=== PATIENT | male | born 1995 | race Caucasian/White ===

== ENCOUNTER → 2022-09-19 15:13 | Outpatient (CLI) | payer OTHER, SELFPAY ==
--- NOTE | 2022-09-19 15:22 | XR_ITS ---
FINAL REPORT CLINICAL HISTORY: R ANTERIOR KNEE PAIN FINDINGS: AP, lateral and oblique views of the right knee were obtained. There is no prior exam for comparison. There is no acute osseous abnormality of the right knee. The joint space is preserved. The soft tissues are normal. There is no joint effusion. IMPRESSION: No acute osseous abnormality of the right knee. Reviewed, Interpreted and Dictated by Herlinda Mehta MD Transcribed by Daniela Shepard Authenticated and [facility]
== END ==
PROVIDERS: PCP Nurse Practitioner Family; Visit Provider Nurse Practitioner Family
DX: M25.561 Pain in right knee (principal)
CPT/HCPCS: 73562

== ENCOUNTER → 2023-01-21 12:30 | Outpatient (CLI) | payer OTHER, SELFPAY | PROVIDERS: PCP Nurse Practitioner Family; Visit Provider Nurse Practitioner Family | DX: R00.1 Bradycardia, unspecified (principal) | CPT/HCPCS: 93225; 93226 ==

== ENCOUNTER → 2023-02-10 15:22 | Outpatient (CLI) | payer OTHER, SELFPAY ==
--- NOTE | 2023-02-10 15:26 | US_ITS ---
PROCEDURE INFORMATION: Exam: US Soft Tissue Head and Neck, Thyroid Exam date and time: 02/10/2023 3:48 PM Age: 27 years old Clinical indication: Abnormal findings; Abnormal thyroid lab test; Additional info: Low tsh level TECHNIQUE: Imaging protocol: Real-time ultrasound scan of the neck with image documentation. Exam focused on the thyroid. COMPARISON: No relevant prior studies available. FINDINGS: Right thyroid lobe: 14.2 mL. Markedly heterogeneous echotexture without dominant solid or suspicious nodule. Left thyroid lobe: 17.5 mL. Markedly heterogeneous echotexture without dominant solid or suspicious nodule. Isthmus: 6 mm IMPRESSION: 1. Markedly heterogeneous enlarged thyroid gland without dominant solid or suspicious nodule. 2. Differential diagnosis goiter, Graves disease and thyroiditis. Recommend correlation with pertinent clinical history and follow-up as indicated.
== END ==
LOC: RAD 15:22
PROVIDERS: PCP Nurse Practitioner Family; Visit Provider Nurse Practitioner Family
DX: R79.89 Other specified abnormal findings of blood chemistry (principal)
CPT/HCPCS: 76536

== ENCOUNTER 2024-02-24 16:16 | Outpatient (CLI) | payer OTHER, SELFPAY ==
[2024-02-24 15:52] LABS: T4 (Thyroxine) 10.6 ug/dl (5.53-11.0)
[2024-02-24 15:53] LABS: 25-OH Vitamin D, Total 41.5 ng/mL (30-100)
[2024-02-24 16:06] LABS: Thyroid Stimulating Hormone 0.83 uIU/mL (0.465-4.68)
[2024-02-24 16:25] LABS: Vitamin B12 533 pg/mL (239-931)
[2024-02-24 17:17] LABS: Ferritin 128 ng/ml (17.9-464)
[2024-02-26 13:15] LABS: Thyroid Peroxidase Antibodies 132 IU/mL (0-34); Triiodothyronine (T3) Free 3.1 pg/mL (2.0-4.4)
[2024-02-26 14:20] LABS: Thyroglobulin Level 4.8 IU/mL (0.0-0.9)
[2024-03-02 23:47] LABS: Vitamin B1 128.6 nmol/L (66.5-200.0)
== END 2024-02-24 23:59 | disposition home or self-care (01) ==
LOC: LAB.DROPOF 16:16
PROVIDERS: PCP Nurse Practitioner Family; Visit Provider Nurse Practitioner Family
DX: E05.90 Thyrotoxicosis, unspecified without thyrotoxic crisis or storm (principal); F32.A Depression, unspecified
CPT/HCPCS: 82306; 82607; 82728; 84425; 84436; 84443; 84481; 86376; 86800

== ENCOUNTER 2024-05-07 10:44 | Outpatient (CLI) | payer OTHER, SELFPAY ==
[2024-05-07 17:18] LABS: Basophils % 0.7 % (0.1-2.0); Eosinophils # 0.2 K/mm3 (0.0-0.4); Eosinophils % 3.5 % (0.1-12.0); Hematocrit 43.1 % (42.0-52.0); Hemoglobin 14.5 g/dL (14.1-18.0); Lymphocytes # 1.2 K/mm3 (0.7-4.5); Lymphocytes % 27.9 % (10-50); Mean Corpuscular HGB Conc 33.6 g/dL (31.8-35.4); Mean Corpuscular Hemoglobin 29.6 pg (27.0-31.2); Mean Corpuscular Volume 88.1 fl (80-94); Mean Platelet Volume 8.3 fl (7.4-10.4); Monocytes # 0.2 K/mm3 (0.1-1.0); Monocytes % 5.2 % (1.7-9.3); Neutrophils # 2.8 K/mm3 (1.8-7.8); Neutrophils % 62.7 % (37.0-80.0); Platelet Count 227 K/mm3 (142-424); Red Blood Count 4.89 M/mm3 (4.60-6.20); Red Cell Distribution Width 13.6 % (11.5-17.5); White Blood Count 4.4 K/mm3 (4.8-10.8)
[2024-05-07 17:32] LABS: Alanine Aminotransferase 55 U/L (12-78); Albumin/Globulin Ratio 1.8 (1.1-1.8); Alkaline Phosphatase 54 U/L (38-126); Anion Gap 11.1 mEq/L (5-15); Aspartate Amino Transferase 38 U/L (17-59); Bilirubin,Total 0.6 mg/dl (0.2-1.3); Blood Urea Nitrogen 11 mg/dl (9-20); Calcium 9.9 mg/dl (8.4-10.2); Carbon Dioxide 28 mmol/L (22.0-30.0); Chloride 105 mmol/L (98-107); Estimated Glomerular Filt Rate 135 ml/min (>60); GFR (African American) 164 ML/MIN (>60); Globulin 2.8 g/dL (1.3-3.2); Glucose 84 mg/dl (74-100); Potassium 4.1 mmoL/L (3.5-5.1); Sodium 140 mmol/L (136-145); Total Protein,Serum 7.8 g/dl (6.3-8.2)
== END 2024-05-07 23:59 | disposition home or self-care (01) ==
LOC: LAB.DROPOF 05-10 10:45
PROVIDERS: PCP Nurse Practitioner Family; Visit Provider Nurse Practitioner Family
DX: R22.1 Localized swelling, mass and lump, neck (principal)
CPT/HCPCS: 80053; 85025

== ENCOUNTER 2024-05-18 06:18 | Outpatient (CLI) | payer OTHER, SELFPAY ==
--- NOTE | 2024-05-18 06:30 | CT_ITS ---
FINAL REPORT TECHNIQUE: Thin section axial CT images with coronal and sagittal reformats were performed through the neck. This study was performed with techniques to keep radiation doses as low as reasonably achievable (ALARA). Individualized dose reduction techniques using automated exposure control or adjustment of mA and/or kV according to the patient''s size were employed. CLINICAL HISTORY: left neck lump x 3mo FINDINGS: The paranasal sinuses are well aerated. There is asymmetric prominence of the left submandibular gland. There is mild stranding in the subcutaneous soft tissues of the upper left neck. This is best seen on images 57-63 of series 3. An enlarged left cervical lymph node is noted, measuring up to 2.0 cm in craniocaudal dimension. This is best seen on coronal image 31 of series 601. Thyroid parenchyma is heterogeneous consistent with a diffuse goiter. IMPRESSION: Localized soft tissue stranding in the upper left lateral cervical region with cellulitis and underlying prominent cervical lymph node and submandibular gland. A definite abscess is not seen. Diffuse goiter. Reviewed, Interpreted and Dictated by Jose Alarcon MD Transcribed by Jennifer Garza Authenticated and [facility]
== END 2024-05-18 23:59 | disposition home or self-care (01) ==
PROVIDERS: PCP Nurse Practitioner Family; Visit Provider Nurse Practitioner Family
DX: R22.1 Localized swelling, mass and lump, neck (principal)
CPT/HCPCS: 70490

== ENCOUNTER 2024-06-02 10:16 | Outpatient (CLI) | payer OTHER, SELFPAY ==
[2024-06-02 11:48] LABS: Free T4 (Free Thyroxine) 0.93 ng/dl (0.78-2.19)
[2024-06-02 11:49] LABS: T4 (Thyroxine) 8.7 ug/dl (5.53-11.0)
[2024-06-02 12:03] LABS: Thyroid Stimulating Hormone 0.42 uIU/mL (0.465-4.68)
[2024-06-03 08:22] LABS: Thyroid Peroxidase Antibodies 128 IU/mL (0-34); Triiodothyronine (T3) Free 3.1 pg/mL (2.0-4.4)
[2024-06-03 16:28] LABS: Thyroglobulin Level 4.7 IU/mL (0.0-0.9)
== END 2024-06-02 23:59 | disposition home or self-care (01) ==
LOC: LAB 10:17
PROVIDERS: PCP Nurse Practitioner Family; Visit Provider Nurse Practitioner Family
DX: E06.3 Autoimmune thyroiditis (principal)
CPT/HCPCS: 36415; 84436; 84439; 84443; 84481; 86376; 86800

== ENCOUNTER 2024-07-21 09:49 | Outpatient (CLI) | payer OTHER, SELFPAY ==
--- NOTE | 2024-07-21 09:52 | XR_ITS ---
FINAL REPORT CLINICAL HISTORY: knee pain COMPARISON: None FINDINGS: 3 views of the right knee were obtained. There is no acute fracture or dislocation. The joint spaces are intact. There is no soft tissue abnormality. IMPRESSION: No acute process Reviewed, Interpreted and Dictated by Francisco Kumar MD Transcribed by Lola Carty Authenticated and [facility]
== END 2024-07-21 23:59 | disposition home or self-care (01) ==
LOC: RAD 09:50
PROVIDERS: PCP Nurse Practitioner Family; Visit Provider Physician Assistant
DX: M25.561 Pain in right knee (principal)
CPT/HCPCS: 73562

== ENCOUNTER 2025-01-24 11:17 | Outpatient (CLI) | payer OTHER, SELFPAY ==
--- OUTSIDE RECORDS SUMMARY | 2025-01-24 11:34 | XMS_ITS | Referral Summary ---
Author Organization [employer] Address [address] [place] [address] Care Team Providers Care Cleat Thrower Name Role Phone Kari Lopez APRN Primary Care Provider Allergies No known active allergies Medications No known medications Active Problems No known active problems Social History Tobacco Use Types Packs/Day Years Used Date Smoking Tobacco: Never Smokeless Tobacco: Current Tobacco Cessation:Ready to Q uit: Not Asked; Counseling Given: Not Answered Alcohol Use Standard Drinks/Week Comments Yes 0 (1 standard drink = 0.6 oz pur e alcohol) Interpersonal Safety Answer Date Record ed Family or friends hurt you Not on file 08/23 Family or friends insult you Not on file Family or friends threaten you Not on file 0 08/23/2023 Family or friends scream or curse at you Not on file 08/23/2023 Housing Stability Answer Date Recorded Living situation today Not on file Living situation problems Not on file 2023 Food Insecurity Answer Date Recorded Food run out past 12 months Not on file 08/05 Food did not last past 12 months Not on file 08/23/2023 Employment Answer Date Recorded Help finding and keeping a job Not on file 0 08/23/2023 Family and Community Support Answer Te e Recorded Help with Day to Day Activities Not on file 08/23/2023 Feeling Lonely or Isolated Not on file 08/23 Educational Attainment Answer Date Prieto rded Speak language other than Azeri at home Not on file 08/23/2023 Want help with school or training Not on file 08/23/2023 Depression Answer Date Recorded PHQ-2 Risk Not on file 08/23/2023 Disabilities Answer Date Recorded Difficulty concentrating Not on file 024 Difficulty doing errands alone Not on file 0 08/23/2023 Substance Use Answer Date Recorded Used prescription meds for non-medical reasons N ot on file 08/23/2023 Used illegal drugs past 12 months Not on file 08/23/2023 Sex and Gender Information Value Date Recorded Sex Assigned at Not on file Legal Sex Male 12:56 PM CDT Gender Identity Not on file Sexual Orientation Not on file Last Filed Vital Signs Vital Sign Reading Time Taken Comments Blood Pressure 140/76 01/19/2023 9:40 PM EDT Pulse 87 01/19/2023 9:40 PM EDT Temperature 36.7 C (98 F) 01/19/2023 2:05 PM EDT Respiratory Rate 18 01/19/2023 9:15 PM EDT Oxygen Saturation 98% 01/19/2023 9:40 PM EDT Inhaled Oxygen Concentration - - Weight 98.4 kg (217 lb) 01/19/2023 2:05 PM EDT Height 182.9 cm (6') 01/19/2023 2:05 PM EDT Body Mass Index 29.43 01/19/2023 2:05 PM EDT Plan of Treatment Not on file Insurance [facility] [place] Zam[place] [id number] Care Teams Cleat Thrower Relationship Specialty Start Date End Date Kari Lopez APRN [address] [place] [id number] PCP - General Nurse Practitioner 01/19/23
--- OUTSIDE RECORDS SUMMARY | 2025-01-24 11:34 | XMS_ITS | Clinical Summary ---
Author Organization [employer] Address [address] [place] [address] Care Team Providers Care Studio Data Analyst Name Role Phone Kari Lopez APRN Primary [...] Date Prieto rded Speak language other than Nepali at home Not on file 08/23/2023 Want [...] 01/19/2023 2:05 PM EDT Plan of Treatment Health Maintenance Due Date Last Done Comments Depression Screening (12+) 2008 HIV Screening 12/27/2011 Hepatitis C Screening 2014 Tobacco Cessation Counseling and Screening (12+) 01/20/2024 01/19/2023 COVID-19 VACCINE ( season) 2024 07/03/2021 Influenza Vaccine (Season Ended) 2025 DTAP/TDAP/TD VACCINES (7 - Td or Tdap) 02/08/2026 02/09/2016, 01/01/2001, 12/27/1997, Additional history exists Pneumococcal Vaccine: 0-49 Years Aged Out No longer eligible based on patient's age to complete this topic Insurance [employer] Care Teams Studio Data Analyst Relationship Specialty Start Date End Date Kari Lopez, BRIM BLOCKER [address] [id number] PCP - General Nurse Practitioner 01/19/23
--- OUTSIDE RECORDS SUMMARY | 2025-01-24 11:34 | XMS_ITS | Data Portability ---
Author Organization Formerly [facility], [facility] Address [address] [place] [address] Assessment No assessment recorded. Plan of Treatment Reminders Order Date Submit Date Provider Last Modified By Organization Details Last Modified Time Details Appointments Maya Mata 2024 02:00P Estiven Cota LCSW Not available Not available Not available Lab None recor ded. Referral gastr becky muniz refer [facility] [address] [facility], [address] [place] [address], [address], 10/22/2018 10:48:55 couns paddy refer [facility] [address], [address] [place] [address], [address], 09/08/2018 08:33:50 Procedures None recor ded. Surgeries None recor ded. Imaging None recor ded. Medication Orders Celex a 20 mg table t 2017 [address], [address], 04/27/2018 16:49:04 Medro l (Andrae) 4 mg table ts in a dose pack 2015 [id number], [address], 04/27/2018 16:11:33 Napro syn 500 mg table t 2015 [email or web address], [place], [address], 04/27/2018 16:11:36 Patient TargetsNo targets recorded. Patient Instructions Encounter Date Encounter Id Patient Instructions Last Modified By Organization Details Last Modified Time 06/19/2016 [id number] gentle ROM exercises, take medications as prescribed, ice packs, discussed the possibility of PT Not available 06/19/2016 10:23:17 04/27/2018 [id number] smoking cessatio n counseling, greater than 3 minutes up to 10 minutes* Not available 05/04/2018 10:02:38 Quitting Tobacco : Care Instructions Not available 04/27/2018 16:21:00 A healthy lifestyle: care instructions Not available 04/27/2018 16:21:00 take meds as prescribed, RTC prn Not available 04/27/2018 16:49:23 discussed family loss, feelings of sadness, pt denies SI or HI, denies hallucinations, or periods of euphoria, discussed journaling and utilizing the inhibition theory, not inhibiting any feelings in the journal, we discussed counseling Not available 04/27/2018 16:51:51 07/22/2018 [id number] drink plenty of water, do not take NSAIDS, avoid constipation, if bleeding gets worse and pt becomes symptomatic like dizziness etc go to the ED Not available 07/22/2018 16:57:32 Reason for Referral Counseling Referral for Depr ession screening Referring Physician: Isela Varela, Family Medicine, Encounter Date: 04/27/2018 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 Problems Name Problem SNOMED Code Status Onset Date Resolution Date Notes Provider Name and Address Organization Details Recorded Time Tobacco user 432531922 Active 016 Crystal Sameer null, VITA - [facility] 6 09:38:00 Chews tobacco 84027111 Active 016 Crystal Sameer null, VITA - [facility] 6 09:38:10 Problem Notes None recorded. Procedures Surgical History Date Name Laterality Status Provider Name and Address Organization Details Recorded Time Adenoidectomy completed Crystal Sameer [place] - [facility] 06/19/2016 09:39:10 Tonsillectomy completed Crystal Sameer [place] - [facility] 06/19/2016 09:39:15 Ear Tubes - Tympanostomy Tubes completed Sunni Sharp [place] - [facility] 04/27 16:13:08 Imaging Results None recorded. Procedure Notes None recorded. Medical Equipment None Reported. Allergies Allergen ID Allergen Name Allergen Category Reaction Reaction Severity Criticality Documentation Date Start Date Code Code System Note Provider Name and Address Organization Details Recorded Time 77023 honey bee venom environme nt Not available Not available Not available 05/10/20162015 38175 7 RxNorm Not Available [facility] 6 09:43:48 Medications Name Sig Start Date Stop Date Status Note LastModified by Organization Details LastModified Time amoxicill in 500 mg capsule TAKE 1 CAPSULE BY MOUTH TWICE DAILY FOR 10 DAYS active Not Available Not Available No t Available Bentyl 10 mg/5 mL oral syrup 2 tsp tid i/2 hr ac 07/05 completed bentyl syrup;Re corded Status: Recorded on: 10/19/19 10 4:29PM;D iscontin ued Status: Disconti nued on: 07/05/20 10 9:40AM;U ser: markesbe ryh;Est. Completi on: 10/26/19 10;Indic ation: - (-5);Bella nted: 10/19/19 10 Not Available Not Available Not Available Miralax 17 gram/dose oral powder take 1 tsp powder (about 5 grams) mixed with 8 oz. water, juice, soda, coffee, or tea by oral route once to twice a day until loose BM 06/15 completed Miralax 17 gram/dos e oral powder;R ecorded Status: Recorded on: 10/28/19 09 1:45PM;D iscontin ued Status: Disconti nued on: 06/15/20 09 1:45PM;U ser: gutwmann ;Indicat ion: Constipa tion - (.5674 00) Not Available Not Available Not Available Augmentin 875 mg-125 mg tablet take 1 tablet by oral route every 12 hours for 10 days 10/15 completed Augmenti n 875-125 mg oral tablet;R ecorded Status: Recorded on: 09/13/19 11 5:05PM;D iscontin ued Status: Disconti nued on: 10/16/19 11 3:25PM;U ser: grossert ;Est. Completi on: 09/23/19 11;Print ed: 09/13/19 11 Not Available Not Available Not Available acetamino phen 325 mg tablet take 1 - 2 tablets (325 - 650 mg) by oral route every 4-6 hours as needed for 30 days 06/16 completed acetamin ophen 325 mg oral tablet;R ecorded Status: Recorded on: 05/11/20 12 10:03AM; Disconti nued Status: Disconti nued on: 06/16/20 12 11:03AM; User: laura; Est. Completi on: 06/10/20 12;Indic ation: Fever - (16.5826 00);Prin daisy: 05/11/20 12 Not Available Not Available Not Available azithromy tawny 250 mg tablet TAKE 2 TABLETS BY MOUTH ONCE DAILY FOR 1 DAY THEN 1 TABLET BY MOUTH ONCE DAILY FOR 4 DAYS active Not Available Not Available No t Available alprazola m 1 mg tablet TAKE 1 TABLET BY MOUTH ONE HOUR PRIOR active Not Available Not Available No t Available Lidocaine Viscous 2 % mucosal solution USE 2.5ML 4 TIMES PER DAY ON MUCOUS MEMBRANE active Not Available Not Available No t Available hydrocodo ne 5 mg-acetam inophen 325 mg tablet TAKE 1 TABLET BY MOUTH EVERY 4 HOURS NEEDED FOR PAIN active Not Available Not Available No t Available Medrol (Andrae) 4 mg tablets in a dose pack take as directed 04/27 completed Not Available Not Available Not Available dextromet horphan-g uaifenesi n 10 mg-100 mg/5 mL oral syrup take 5 millilit ers by oral route every 4 hours as needed 09/13 completed dextrome thorphan -guaifen esin 10-100 mg/5 mL oral syrup;Re corded Status: Recorded on: 07/05/20 10 9:57AM;D iscontin ued Status: Disconti nued on: 09/13/19 11 4:45PM;U ser: rankinw; Est. Completi on: 07/15/20 10 Not Available Not Available Not Available Tamiflu 75 mg capsule take 1 capsule (75 mg) by oral route 2 times a day for 5 days 09/13 completed Tamiflu 75 mg oral capsule; Recorded Status: Recorded on: 07/05/20 10 9:58AM;D iscontin ued Status: Disconti nued on: 09/13/19 11 4:45PM;U ser: rankinw; Est. Completi on: 07/10/20 10 Not Available Not Available Not Available ketorolac 10 mg tablet TAKE 1 TABLET BY MOUTH EVERY 6 HOURS FOR 5 DAYS active Not Available Not Available No t Available Tessalon Perles 100 mg capsule take 1 capsule (100 mg) by oral route 3 times per day for 10 days 10/27 completed Tessalon Perles 100 mg oral capsule; Recorded Status: Recorded on: 07/18/20 14 11:12AM; Disconti nued Status: Disconti nued on: 10/28/19 15 3:09PM;U ser: gored;Es t. Completi on: 07/28/20 14;Indic ation: Cough - (16.7862 00);Prin daisy: 07/18/20 14 Not Available Not Available Not Available amoxicill in 875 mg tablet take 1 tablet (875 mg) by oral route every 12 hours for 10 days 09/03 completed amoxicil gonzález 875 mg oral tablet;R ecorded Status: Recorded on: 12/11/19 11 3:24PM;D iscontin ued Status: Disconti nued on: 09/03/19 12 4:03PM;U ser: [email or web address]; Est. Completi on: 12/21/19 11;Print ed: 12/11/19 11 Not Available Not Available Not Available Imodium A-D 2 mg tablet take 2 tablets (4 mg) by oral route after 1st loose stool and 1 tablet (2 mg) after each next bowel movement ; do not exceed 16 mg in 24hrs for 5 days 09/22 completed Imodium A-D 2 mg oral tablet;R ecorded Status: Recorded on: 06/16/20 12 11:29AM; Disconti nued Status: Disconti nued on: 09/22/19 14 6:06PM;U ser: guttmann ;Est. Completi on: 06/21/20 12;Indic ation: Diarrhea - (16.7879 10);Prin daisy: 06/16/20 12 Not Available Not Available Not Available Celexa 20 mg tablet Take 1 tablet every day by oral route for 30 days. 2017 active Not Available Not Available Not Avai lable Phenergan 25 mg rectal supposito ry insert 1 supposit ory (25 mg) by rectal route every 6 hours as needed 07/05 completed Phenerga n 25 mg rectal supposit ory;Prieto rded Status: Recorded on: 06/15/20 09 2:38PM;D iscontin ued Status: Disconti nued on: 07/05/20 10 9:40AM;U ser: keefk;In dication : Nausea and Vomiting - (16.7870 10);Prin daisy: 06/15/20 09 Not Available Not Available Not Available promethaz ine 25 mg tablet take 1 tablet by oral route Q4-6H N/V 09/22 completed prometha zine 25 mg oral tablet;R ecorded Status: Recorded on: 06/16/20 12 11:29AM; Disconti nued Status: Disconti nued on: 09/22/19 14 6:06PM;U ser: guttmann ;Est. Completi on: 06/26/20 12;Indic ation: Nausea and Vomiting - (16.7870 10);Prin daisy: 06/16/20 12 Not Available Not Available Not Available ibuprofen 200 mg tablet take 1-2 tablets by oral route every 4 to 6 hours as needed for 30 days 06/16 completed ibuprofe n 200 mg oral tablet;R ecorded Status: Recorded on: 05/11/20 12 10:03AM; Disconti nued Status: Disconti nued on: 06/16/20 12 11:03AM; User: germán Est. Completi on: 06/10/20 12;Indic ation: Fever - (16.7806 00);Prin daisy: 05/11/20 12 Not Available Not Available Not Available ibuprofen 600 mg tablet active Not Available Not Available Not Available Lomotil 2.5 mg-0.025 mg tablet take 1 tablet by oral route 3 times a day for 5 days 10/08 completed Lomotil 2.5-0.02 5 mg oral tablet;R ecorded Status: Recorded on: 09/20/19 12 11:25AM; Disconti nued Status: Disconti nued on: 10/09/19 12 1:51PM;U ser: danny; Est. Completi on: 09/25/19 12;Indic ation: Viral Gastroen teritis - (008.8) Not Available Not Available Not Available Naprosyn 500 mg tablet Take 1 tablet twice a day by oral route for 30 days. 04/27 completed Not Available Not Available Not Available sertralin e 50 mg tablet TAKE 1 TABLET BY MOUTH DAILY active Not Available Not Available No t Available Augmentin 500 mg-125 mg tablet take 1 tablet by oral route every 8 hours for 10 days 06/15 completed Augmenti n 500-125 mg oral tablet;R ecorded Status: Recorded on: 12/13/19 09 2:02PM;D iscontin ued Status: Disconti nued on: 06/15/20 09 1:45PM;U ser: zina ;Est. Completi on: 12/23/19 09 Not Available Not Available Not Available aripipraz ole 5 mg tablet TAKE 1 TABLET BY MOUTH EVERY DAY active Not Available Not Available No t Available EpiPen 0.3 mg/0.3 mL injection , auto-inje ctor inject 0.3 millilit er (0.3 mg) by intramus cular route once as needed for anaphyla xis 04/27 completed EpiPen 0.3 mg/0.3 mL injectio n auto-inj tonya;Re corded Status: Recorded on: 12/14/19 16 9:24AM;U ser: jonest;I ndicatio n: Anaphyla xis - (17.9950 00);Prin daisy: 12/14/19 16 Not Available Not Available Not Available azithromy tawny 1 qd 10/15 completed azithrom ycin 500mg;Re corded Status: Recorded on: 09/24/19 11 4:56PM;D iscontin ued Status: Disconti nued on: 10/16/19 11 3:25PM;U ser: markesbe ryh;Est. Completi on: 10/01/19 11;Indic ation: - (-5);Bella nted: 09/24/19 11 Not Available Not Available Not Available Augmentin 1 bid 06/15 completed augmenti n 500mg;Re corded Status: Recorded on: 03/29/20 09 11:51AM; Disconti nued Status: Disconti nued on: 06/15/20 09 1:45PM;U ser: markesbe ryh;Est. Completi on: 04/08/20 09;Indic ation: - (-5) Not Available Not Available Not Available Keflex 1 bid 12/10 completed keflex 500mg;Re corded Status: Recorded on: 11/22/19 11 3:26PM;D iscontin ued Status: Disconti nued on: 12/11/19 11 3:09PM;U ser: markesbe ryh;Est. Completi on: 12/02/19 11;Indic ation: - (-5);Bella nted: 11/22/19 11 Not Available Not Available Not Available Phenergan DM 1 tsp tid 10/15 completed phenerga n dm;Recor ded Status: Recorded on: 09/24/19 11 4:56PM;D iscontin ued Status: Disconti nued on: 10/16/19 11 3:25PM;U ser: nona peña;Est. Completi on: 10/01/19 11;Indic ation: - (-5);Bella nted: 09/24/19 11 Not Available Not Available Not Available Vitals Date Recorded Body weight Body temperature Respiratory rate Heart rate Oxygen saturation Oxygen saturation in Arterial blood by Pulse oximetry Body mass index (BMI) Body height Systolic blood pressure Diastolic blood pressure Provider Name and Address Organization Details Last Updated DateTime 8 262458. 12 g 98.3 [degF] 20 /min 88 /min 98 % 98 % 40.6 kg/m2 182.88 cm 140 mm[Hg] 88 mm[Hg] Sunni Sandy [place] - [facility] 8 16:11:22 Date Recorded Body height Body weight Body mass index (BMI) Heart rate Oxygen saturation Oxygen saturation in Arterial blood by Pulse oximetry Respiratory rate Body temperature Systolic blood pressure Diastolic blood pressure Provider Name and Address Organization Details Last Updated DateTime 6 182.88 cm 801445. 21 g 31.9 kg/m2 89 /min 99 % 99 % 16 /min 98.2 [degF] 134 mm[Hg] 82 mm[Hg] Crystal Sameer [place] - [facility] 6 09:42:50 Date Recorded Body height Body mass index (BMI) Body weight Heart rate Respiratory rate Systolic blood pressure Diastolic blood pressure Provider Name and Address Organization Details Last Updated DateTime 8 182.88 cm 38.9 kg/m2 887135. 01 g 80 /min 18 /min 140 mm[Hg] 92 mm[Hg] Daniela Chaveshop [place] - [facility] 8 16:14:02 Social History Question Answer Notes LastModified by Organizat ion Details LastModified Time Tobacco Smoking Status Former Smoker Sunni fu, [place] - [facility] 04/27/2018 16:11:55 What Is Your Level Of Caffeine Consumption? Moderate [email or web address] Information not available 04/27/2018 What Type Of Diet Are You Following? REGULAR [email or web address] Information not available 04/27/2018 Which Illicit Or Recreational Drugs Have You Used? Denies Information not available 04/27/2018 Hard Of Hearing Or Deaf In One Or Both Ears? No [email or web address] Information not available 04/27/2018 Legally Blind In One Or Both Eyes? No [email or web address] Information no t available 04/27/2018 Live Alone Or With Others? With Others [email or web address] Information not available 04/27/2018 What Was The Date Of Your Most Recent Tobacco Screening? 04/27/2018 Information not available 02/24/2019 What Is Your Relationship Status? Single Information not available 04/27/2018 Seat Belts Used Routinely Yes [email or web address] Information not available 04/27/2018 Sex: Unknown Functional Status Question Answer Note LastModified by Organizat ion Details LastModified Time What is your level of alcohol consumption? Occasional [email or web address] Information not available 04/27/2018 Are you currently employed? Yes [email or web address] Information not available 04/27/2018 Are you able to care for yourself? Yes [email or web address] Information not available 04/27/2018 Mental Status None recorded. Family History Relationship Description Onset Age of this Age Resolved Age Notes LastModified by Organization Details LastModified Time Mother Cardiac arrest 50 [email or web address] Not available 2015 09:38:33 Maternal Grandmother Coronary arterioscler osis [email or web address] Not available 2015 09:38:48 Paternal Grandmother Coronary arterioscler osis [email or web address] Not available 2015 09:38:48 Unspecified Relation Type 2 diabetes mellitus [email or web address] Not available 2015 09:38:57 Medical History Condition Response Tobacco Abuse Y Immunizations Vaccine Type Date Status Note Provider Nam e and Address Organization Details Recorded Time influenza, unspecified formulation 6 completed Not Available [facility] 05/14/2016 00:46:06 influenza, unspecified formulation 2 completed Not Available [facility] 09/04/2019 02:21:54 Past Encounters Encounter ID Performer Location Encounter Start Date Encounter Closed Date Diagnosis/Indication Diagnosis SNOMED-CT Code Diagnosis ICD10 Code Diagnosis Note [id number] [facility] [address] [place] [address] 10/15/2010 00:00:[id number] [facility] [address] [place] [place] [address] [address] 11/21/2010 00:00:00 [id number] [facility] [address] [place] [address] 09/03/2011 00:00:00 [id number] [facility] [address] [place] [address] 09/20/2011 00:00:00 [id number] [facility] [address] [place] [address] 10/09/2011 00:00:00 [id number] [facility] [address] [place] [address] 03/18/2012 00:00:00 [id number] [facility] [address] [place] [address] 05/11/2012 00:00:00 [id number] [facility] [address] [place] [address] 06/16/2012 00:00:00 [id number] [facility] [address] [place] [address] 12/14/2015 00:00:00 [id number] [facility] [address] [place] [address] 11/01/2015 00:00:00 [id number] [facility] [address] [place] [address] 12/14/2015 00:00:00 [id number] [facility] [address] [place] [address] 09/22/2013 00:00:00 [id number] [facility] [address] [place] [address] 07/18/2014 00:00:00 [id number] [facility] [address] [place] [address] 10/27/2014 00:00:00 [id number] [facility] [address] [place] [address] 11/01/2015 00:00:00 [id number] [facility] [address] [place] [address] [address] 10/06/2009 00:00:00 [id number] [facility] [address] [place] [address] [address] 10/18/2009 00:00:00 [id number] [facility] [address] [place] [address] 07/05/2010 00:00:00 [id number] [facility] [address] [place] [address] 07/05/2010 00:00:00 [id number] [facility] [address] [place] [address] 09/13/2010 00:00:00 [id number] [facility] [address] [place] [address] 10/27/2008 00:00:00 [id number] [facility] [address] [place] [address] 11/18/2008 00:00:00 [id number] [facility] [address] [place] [address] 12/12/2008 00:00:00 [id number] [facility] [address] [place] [address] 03/29/2009 00:00:00 [id number] [facility] [address] [place] [address] 06/12/2009 00:00:00 [id number] [facility] [address] [place] [address] 06/15/2009 00:00:00 [id number] [facility] [address] [place] [address] 07/18/2009 00:00:00 [id number] [facility] [address] [place] [address] 10/06/2009 00:00:00 [id number] [facility] [address] [place] [address] 09/24/2010 00:00:00 [id number] Isela Varela [facility] [address] [place] [address] 06/19/2016 09:26:57 06/19/2016 10:34:50 Shoulder joint pain 340837516 M25.492 [id number] Isela Varela [facility] [address] [place] [address] 04/27/2018 15:50:31 04/27/2018 17:06:38 Nicotine dependence 90573962 F17.200 Body mass index 40+ - severely obese 595814706 Z68.41 Depression screening 171 097926 Z13.89 Mild depression 34387813 3 F32.0 [id number] Isela Varela [employer] [facility] [address] [place] [address] 07/22/2018 16:02:29 07/22/2018 17:04:29 Painless rectal bleeding 402938829 K62.5 bright red rectal bleeding, pt brought several pictures on his phone of the blood in stool, would like to see GI Health Concerns Section Related Observation LastModified by Organization Detai ls LastModified Time None Recorded Concern Status LastModified by Organization Details LastModified Time None Recorded Advance Directives Directive None Recorded Payers Insurance Date Sequence Insurance Name Policy Number Policy Mart Covered Member ID Mart Member ID Guarantor Name 06/19/[address] [facility]. (MEDICAID REPLACEMENT - HMO) [id number] Lito [facility] [id number] Lito Jose 04/27/2018 1 *SELF PAY* Tarah holley Jose 04/16/2024 1 [facility] [id number] [facility] [id number] [facility] Notes Date Note Type Note Provider Name and Address Organization Details Recorded Time 06/19/2016 text/html Left shoulder pain, feels it popping, 4 days ago, limited ROM VITA Franco - [facility] 06/19/2016 10:25:13 04/27/2018 text/html pt is in the office today for depression, states he hasn't been feeling himself lately, hes been [place], emotional, feels up and down IselaVITA Velazquez - [facility] 04/27/2018 16:52:06 07/22/2018 text/html noted blood in stool--some clotting--has had history of hemorrhoids but no constipation recent IselaVITA Velazquez [facility] 07/22/2018 16:57:53
--- OUTSIDE RECORDS SUMMARY | 2025-01-24 11:34 | XMS_ITS | Clinical Summary ---
Author Organization Healthcare Address [facility] [place] [address] Care Team Providers Care Screen Tender Helper Name Role Phone Unavailable Primary Care Provider Unavailabl e Allergies No known active allergies Medications sertraline (Zoloft) 50 MG tablet Take 1 tablet (50 mg) by mouth 1 (one) time each day. 03/26/2023 Active Active Problems Problem Noted Date Diagnosed Date Hyperthyroidism 04/03/2023 Recent unexplained weight loss 04/03/2023 Bradycardia 04/03/2023 Heat intolerance 04/03/2023 Electronic cigarette use 04/03/2023 Diarrhea 04/03/2023 Family History Medical History Relation Name Comments Diabetes type II Father Relation Name Status Comments Father Social History Tobacco Use Types Packs/Day Years Used Date Smoking Tobacco: Never Smokeless Tobacco: Never Tobacco Cessation:Counseling Given: Not Answered Alcohol Use Standard Drinks/Week Comments Yes 0 (1 standard drink = 0.6 oz pur e alcohol) ocassionally PHQ-2 Answer Date Recorded Patient Health Questionnaire-2 Score 0 04/03/2023 PHQ-2A Answer Date Recorded Patient Health Questionnaire-2 Score 0 04/03/2023 Sex and Gender Information Value Date Recorded Sex Assigned at Not on file Legal Sex Male 6:31 PM EDT Gender Identity Not on file Sexual Orientation Not on file Last Filed Vital Signs Vital Sign Reading Time Taken Comments Blood Pressure 113/68 04/03/2023 3:28 PM EDT Pulse 48 04/03/2023 3:28 PM EDT Temperature - - Respiratory Rate - - Oxygen Saturation - - Inhaled Oxygen Concentration - - Weight 95.5 kg (210 lb 8.6 oz) 04/03/2023 3:28 P M EDT Height 180.3 cm (5' 11 ) 04/03/2023 3:28 PM EDT Body Mass Index 29.36 04/03/2023 3:28 PM EDT Plan of Treatment Health Maintenance Due Date Last Done Comments [facility]-HIV Screening 1996 [facility]-Hepatitis C Screening 1996 [facility]-Infant/Child/Adol SDOH Screenings 1996 [facility]-Hepatitis B Vaccines (3 of 3 - 3-dose series) 02/21/1998 12/27/1997, 02/25/1997 [facility]-Varicella Vaccines (2 of 2 - 2-dose childhood series) 2000 07/03/1999 HPV Vaccines (1 - Male 3-dose series) 12/27/2011 [facility]- SDOH Screenings 2014 [facility]-Adult SDOH Screenings 2014 [facility]-Depression Screening 04/03/2024 04/03/2023 [id number] Vaccine (2 - season) 2024 07/03/2021 [facility]-Influenza Vaccine (Season Ended) 2025 05/11/2012 [facility]-DTaP,Tdap,and Td Vaccines (7 - Td or Tdap) 02/08/2026 02/09/2016, 01/01/2001, 12/27/1997, Additional history exists [facility]-Zoster Vaccines (1 of 2) 2046 07/03/1999 [facility]-HIB Vaccines Completed 12/27/1997, 08/1996, 05/06/1997, Additional history exists [facility]-IPV Vaccines Completed 01/01/2001, 08/1996, 05/06/1997, Additional history exists [facility]-Obesity Intervention Completed 04/03/2023 [facility]-Hepatitis A Vaccines Aged Out No longer eligible based on patient's age to complete this topic [facility]-Pneumococcal Vaccine: Pediatrics (0 to 5 Years) and At-Risk Patients (6 to 49 Years) Aged Out No longer eligible based on patient's age to complete this topic [facility]-Rotavirus Vaccines Aged Out No lo nger eligible based on patient's age to complete this topic Insurance [facility]
[2025-01-24 13:02] LABS: Free T4 (Free Thyroxine) 0.98 ng/dl (0.78-2.19)
[2025-01-24 13:16] LABS: Thyroid Stimulating Hormone 0.34 uIU/mL (0.465-4.68)
== END 2025-01-24 23:59 | disposition home or self-care (01) ==
LOC: LAB 11:18
PROVIDERS: PCP Nurse Practitioner Family; Visit Provider Otolaryngology
DX: E05.90 Thyrotoxicosis, unspecified without thyrotoxic crisis or storm (principal)
CPT/HCPCS: 36415; 84439; 84443